=== PATIENT | female | born 1995 | race African-American/Black ===

== ENCOUNTER 2020-09-21 07:00 | Day surgery (SDC) | payer MEDICAID, SELFPAY ==
[~2020-09-21] VITALS: Ht 170.2 cm; Wt 54.4 kg
[2020-09-21] MEDS ORDERED: SIMETHICONE 40 MG/0.6 ML ML ONE (07:54)
[2020-09-21] MEDS: fentaNYL CITRATE/PF 100 MCG/2 ML AMP ONE ×3 (08:07→08:12)
[2020-09-21] MEDS: MIDAZOLAM HCL 5 MG/5 ML VIAL ONE ×4 (08:07→08:15)
[2020-09-21] MEDS ORDERED: fentaNYL CITRATE/PF 100 MCG/2 ML AMP ONE (08:14)
[2020-09-21 08:30] VITALS: BP_SYST 115
[2020-09-21 09:13] LABS: HCG,QUAL RESULT NEGATIVE (NEGATIVE)
== END 2020-09-21 08:30 | disposition home or self-care (01) ==
LOC: SDS 07:00 → SMU 07:30 → SDS 08:30 → EDBD 08:30
PROVIDERS: ATTEND Internal Medicine
DX: R11.0 Nausea (principal); K29.50 Unspecified chronic gastritis without bleeding; Z91.040 Latex allergy status; Z79.899 Other long term (current) drug therapy; Z20.828 Contact with and (suspected) exposure to other viral communicable diseases
CPT/HCPCS: 36415; 43239; 84703; 87081; 88305; 88312; 88313; 96365; 99152; G0378; J2250; J3010; U0003

== ENCOUNTER 2021-02-23 07:07 | Day surgery (SDC) | payer MEDICAID ==
[~2021-02-23] VITALS: Ht 170.2 cm; Wt 54.4 kg
[2021-02-23] MEDS ORDERED: fentaNYL CITRATE/PF 100 MCG/2 ML AMP ONE (07:31)
[2021-02-23] MEDS ORDERED: MIDAZOLAM HCL 5 MG/5 ML VIAL ONE (07:31)
[2021-02-23] MEDS ORDERED: SIMETHICONE 40 MG/0.6 ML ML ONE (07:31)
[2021-02-23 07:46] LABS: HCG,QUAL RESULT NEGATIVE (NEGATIVE)
[2021-02-23] MEDS ORDERED: DIPHENHYDRAMINE INJ 50 MG/ML VIAL ONE (08:28)
[2021-02-23 10:09] VITALS: BP_SYST 99
== END 2021-02-23 09:35 | disposition home or self-care (01) ==
LOC: SDS 07:07 → SMU 07:08 → SDS 09:35
PROVIDERS: ATTEND Internal Medicine
DX: R19.4 Change in bowel habit (principal); K58.2 Mixed irritable bowel syndrome; Z79.899 Other long term (current) drug therapy
CPT/HCPCS: 36415; 45380; 84703; 87426; 88305; 99152; G0378; J1200; J2250; J3010; J7030